=== PATIENT | male | born 1995 | race Caucasian/White ===

== ENCOUNTER 2023-12-27 18:56 | Emergency (ER) | payer BC, SELFPAY ==
[2023-12-27 19:19] VITALS: BP 122/68; PULSE 91; RESP 18; TEMP 36.8; O2SAT 99; BMI 21.7
[2023-12-27 20:00] LABS: Basophils Absolute Auto 0.01 K/uL (0.00-0.30); Basophils Percent Auto 0.1 % (0.0-3.0); Eosinophils Absolute Auto 0.12 K/uL (0.00-0.50); Eosinophils Percent Auto 1.5 % (0.0-7.0); Hemoglobin* 15.7 gm/dL (13.5-17.5); Lymphocytes Percent Auto 36.3 % (20-44); Mean Corpuscular HGB Conc 34 gm/dL (32-36); Mean Corpuscular Hemoglobin 30 pg (26-34); Mean Corpuscular Volume 89 fL (80-100); Neutrophils Absolute Auto 4.23 K/uL (1.7-7.0); Neutrophils Percent Auto 53.1 % (42.0-72.0); Platelet Count* 210 K/uL (140-440); RDW Coefficient of Variation % 13.1 % (11.5-15.5); White Blood Count* 7.98 K/uL (4.50-11.00)
[2023-12-27 20:07] LABS: Slide Review Reflex No
[2023-12-27 20:19] LABS: SARS PCR* Negative SARS-CoV-2 (Negative)
[2023-12-27 20:29] LABS: Chloride* 101 mmol/L (96-114)
[2023-12-27 20:30] LABS: Albumin* 5.1 g/dL (3.3-5.0); Sodium* 138 mmol/L (135-149)
[2023-12-27 20:31] LABS: Potassium* 3.9 mmol/L (3.6-5.1)
[2023-12-27 20:33] LABS: Alanine Aminotransferase* 42 U/L (4-50); Alkaline Phosphatase* 62 U/L (40-150); Anion Gap 8 mEq/L (7-15); Aspartate Amino Transferase* 28 U/L (12-35); Bilirubin Direct* 0.3 mg/dL (0.0-0.5); Bilirubin Total* 0.6 mg/dL (0.1-1.5); Blood Urea Nitrogen* 24 mg/dL (5-24); Carbon Dioxide* 29 mmol/L (20-32); Est. Creatinine Clearance* 104.14; Estimated Glomerular Filt Rate 106 ml/min; Glucose* 78 mg/dL (60-115)
--- NOTE | 2023-12-27 20:33 | ED.GENADULT ---
HPI - General Adult General Chief complaint: Psychiatric Problem/Disorder <Carolynn Garcia MD - Last Filed: 12/29/23 19:19> Stated complaint: Mental health <Carolynn Garcia MD - Last Filed: 12/29/23 19:19> Time Seen by Provider: 12/27/23 19:22 <Carolynn Garcia MD - Last Filed: 12/29/23 19:19> Source: patient and family <Carolynn Garcia MD - Last Filed: 12/29/23 19:19> Mode of arrival: ambulatory <Carolynn Garcia MD - Last Filed: 12/29/23 19:19> Limitations: no limitations <Carolynn Garcia MD - Last Filed: 12/29/23 19:19> History of Present Illness HPI narrative: 28-year-old male presenting to the ER today with concerns of depression. Patient has a history of bipolar disorder, depression and anxiety. He also has ADHD. States that in the last 2 months he has become significantly more sad and depressed. Yesterday he asked his mom to come to the ER for help. Two days ago told his mother that he wanted to hurt himself. Today he says that he has no planned hurt himself but he frequently thinks about suicide and that suicidal thoughts run through his mind daily. After stating that he had no plan, he said he would likely related wrists and sit in the bathtub but then states that he would never actually do that. Last suicidal attempt was approximately 10 years ago per his mother. He has had no psychiatric hospitalizations since. He does have a psychiatrist that he sees regularly. He says that 1 of his medications was changed a couple of weeks ago, he feels that his mood is better but his depression continues to be significant an overwhelming. His mother is concerned that he cannot be left alone because he does have impulsivity and because he has been so down recently she is concerned that he is going to hurt himself. Patient states that he would like to get help to feel better. Patient lives at home with his mother. Mother states that she has to work a week and is requesting hospitalization for her son. Patient states that he would rather not be hospitalized but he understands the need for it and will be on board if that is what is requested of him. Patient denies any drug or alcohol use for the last 8 months. <Carolynn Garcia MD - Last Filed: 12/29/23 19:19> Related Data Home medications: Home Medications ?Medication ?Instructions ?Recorded ?Confirmed cariprazine 3 mg capsule (Vraylar) 3 mg PO DAILY 12/27/23 12/27/23 doxycycline hyclate 100 mg capsule mg PO 12/27/23 tizanidine 4 mg tablet 4 mg PO QPM muscle spasm 12/27/23 12/27/23 trazodone 50 mg tablet 25 - 50 mg PO QPM PRN 12/27/23 12/27/23 <Carolynn Garcia MD - Last Filed: 12/29/23 19:19> Allergies/adverse reactions: Allergies Allergy/AdvReac Type Severity Reaction Status Date / Time amoxicillin [From Augmentin] Allergy Mild Hives Verified 12/27/23 19:12 clavulanic acid Allergy Mild Hives Verified 12/27/23 19:12 [From Augmentin] <Carolynn Garcia MD - Last Filed: 12/29/23 19:19> Review of Systems Status of ROS: Reports: 10 or more systems reviewed and unremarkable except as noted in History and below <Carolynn Garcia MD - Last Filed: 12/29/23 19:19> [facility] Social History: Social History Smoking Status: Current every day smoker Do you use any of these nicotine containing products: E-Cigarettes How often do you have a drink containing alcohol: never AUDIT-C Alcohol total score: 0 Non-prescribed substance use: marijuana (any form) <Carolynn Garcia MD - Last Filed: 12/29/23 19:19> Exam Narrative: Exam Narrative: Well-nourished well-developed patient in no acute distress. Alert and oriented. Answers questions appropriately. Mood is slightly agitated and depressed. Thoughts are goal oriented and rational. No tangential or magical thinking noted. Patient speaks in full sentences without needing to catch his breath. Patient is somewhat disheveled. HEENT: Normocephalic atraumatic. Pupils are equally round reactive to light. Extraocular muscles are intact. Conjunctivae are moist without any icterus noted. Moist mucous membranes. Cardiovascular: Heart is regular rate and rhythm S1 and S2 are present without any murmurs. Lungs: Clear to auscultation bilaterally no wheezes rhonchi or rales are appreciated. Patient takes deep breaths without any discomfort. Abdomen: Soft and nontender nondistended with normal bowel sounds. Extremities: Bilateral lower extremities are without edema. Skin: Well perfused. <Carolynn Garcia MD - Last Filed: 12/29/23 19:19> Const: Vital Signs, click to edit/add: Vital Signs - 24 hr 12/27/23 19:19 12/28/23 02:00 Temperature 98.2 F 98.0 F Pulse Rate [Pulse Oximeter] 91 65 Respiratory Rate 18 16 Blood Pressure [Ri ght Upper Arm] 122/68 118/68 Pulse Oximetry 99 98 Oxygen Delivery Me thod Room Air Room Air <Carolynn Garcia MD - Last Filed: 12/29/23 19:19> Vital Signs, click to edit/add: Vital Signs - 24 hr 12/27/23 19:19 12/28/23 02:00 Temperature 98.2 F 98.0 F Pulse Rate [Pulse Oximeter] 91 65 Respiratory Rate 18 16 Blood Pressure [Ri ght Upper Arm] 122/68 118/68 Pulse Oximetry 99 98 Oxygen Delivery Me thod Room Air Room Air <Jose Morel MD - Last Filed: 12/28/23 07:10> Vital Signs, click to edit/add: Vital Signs - 24 hr 12/27/23 19:19 12/28/23 02:00 Temperature 98.2 F 98.0 F Pulse Rate [Pulse Oximeter] 91 65 Respiratory Rate 18 16 Blood Pressure [Ri ght Upper Arm] 122/68 118/68 Pulse Oximetry 99 98 Oxygen Delivery Me thod Room Air Room Air <Cali Vitale MD - Last Filed: 12/28/23 10:08> Course Course ED Course: Discussed options with patient and his family which include following up with her psychiatrist this coming week to do a med change. Again mother is very concerned about leaving the patient alone for the weekend and given the fact that he was stating that he was going to hurt himself only 2 days ago and requested to come to the ER for help, we have decided to admit the patient to psychiatric facility at this time. <Carolynn Garcia MD - Last Filed: 12/29/23 19:19> Reevaluation(s) Reevaluation #1: Dr. Morel took over care of this patient at midnight-shift change. Signed out by Dr. Meeks. 28-[facility] Desires voluntary inpatient mental health admission. Has a history of bipolar disorder, and sounds like he has been decompensating for a few months. Increasingly sad, depressed. Also paranoid and anxious. Had previously been living on his own, with roommates but now had to move back in with his mother. Having pervasive thoughts of wanting to hurt himself. Has not made any specific suicide attempt. Not actively planning. However he just does not feel safe and can not stop thinking about it. His mother has to work and feels like he is not safe to be at home alone this weekend. He is here in the ER voluntarily and does want inpatient treatment. He is voluntary but holdable. He is medically clear. I reassessed patient at 12:30 p.m.. He is desiring medication to help himself sleep. Normally takes trazodone as needed bedtime. Usual doses 25-50 mg at at bedtime. I ordered trazodone 50 mg p.o.. He also smokes, a few cigarettes per day and also vapes nicotine. This iron something for nicotine withdrawal. Says overall he does not smoke very much. Therefore will start with a low-dose nicotine patch-7 mg/hour He and his mother are comfortable with this plan. Updated them that at this point we do not have any accepting facility and were working on placement. Anticipate that it probably could take until tomorrow (or even longer) to find placement. However I will update them tonight if any bed opens up overnight. They understand that there may be some delay and are still agreeable and voluntary for admission. 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 Slept well. Signed out to my daytime partner at shift change <Jose Morel MD - Last Filed: 12/28/23 07:10> Vital Signs Vital signs: Initial Vital Signs Temperature 98.2 F 12/27/23 19:19 Temperature Source Temporal Artery Scan 12/27/23 19:19 Pulse Rate 91 12/27/23 19:19 Respiratory Rate 18 12/27/23 19:19 Blood Pressure 122/68 12/27/23 19:19 Blood Pressure Mean 86 12/27/23 19:19 Pulse Oximetry 99 12/27/23 19:19 Oxygen Delivery Method Room Air 12/27/23 19:19 Vital Signs Temperature 98.2 F 12/27/23 19:19 Pulse Rate 91 12/27/23 19:19 Respiratory Rate 18 12/27/23 19:19 Blood Pressure 122/68 12/27/23 19:19 Pulse Oximetry 99 12/27/23 19:19 Oxygen Delivery Method Room Air 12/27/23 19:19 Temperature 98.0 F 12/28/23 02:00 Pulse Rate 65 12/28/23 02:00 Respiratory Rate 16 12/28/23 02:00 Blood Pressure 118/68 12/28/23 02:00 Pulse Oximetry 98 12/28/23 02:00 Oxygen Delivery Method Room Air 12/28/23 02:00 <Carolynn Garcia MD - Last Filed: 12/29/23 19:19> Initial Vital Signs Temperature 98.2 F 12/27/23 19:19 Temperature Source Temporal Artery Scan 12/27/23 19:19 Pulse Rate 91 12/27/23 19:19 Respiratory Rate 18 12/27/23 19:19 Blood Pressure 122/68 12/27/23 19:19 Blood Pressure Mean 86 12/27/23 19:19 Pulse Oximetry 99 12/27/23 19:19 Oxygen Delivery Method Room Air 12/27/23 19:19 Vital Signs Temperature 98.2 F 12/27/23 19:19 Pulse Rate 91 12/27/23 19:19 Respiratory Rate 18 12/27/23 19:19 Blood Pressure 122/68 12/27/23 19:19 Pulse Oximetry 99 12/27/23 19:19 Oxygen Delivery Method Room Air 12/27/23 19:19 Temperature 98.0 F 12/28/23 02:00 Pulse Rate 65 12/28/23 02:00 Respiratory Rate 16 12/28/23 02:00 Blood Pressure 118/68 12/28/23 02:00 Pulse Oximetry 98 12/28/23 02:00 Oxygen Delivery Method Room Air 12/28/23 02:00 <Jose Morel MD - Last Filed: 12/28/23 07:10> Initial Vital Signs Temperature 98.2 F 12/27/23 19:19 Temperature Source Temporal Artery Scan 12/27/23 19:19 Pulse Rate 91 12/27/23 19:19 Respiratory Rate 18 12/27/23 19:19 Blood Pressure 122/68 12/27/23 19:19 Blood Pressure Mean 86 12/27/23 19:19 Pulse Oximetry 99 12/27/23 19:19 Oxygen Delivery Method Room Air 12/27/23 19:19 Vital Signs Temperature 98.2 F 12/27/23 19:19 Pulse Rate 91 12/27/23 19:19 Respiratory Rate 18 12/27/23 19:19 Blood Pressure 122/68 12/27/23 19:19 Pulse Oximetry 99 12/27/23 19:19 Oxygen Delivery Method Room Air 12/27/23 19:19 Temperature 98.0 F 12/28/23 02:00 Pulse Rate 65 12/28/23 02:00 Respiratory Rate 16 12/28/23 02:00 Blood Pressure 118/68 12/28/23 02:00 Pulse Oximetry 98 12/28/23 02:00 Oxygen Delivery Method Room Air 12/28/23 02:00 <Cali Vitale MD - Last Filed: 12/28/23 10:08> Medications Administered Medications: Discontinued Medications Generic Name Dose Route Start Last Admin Trade Name Freq PRN Reason Stop Dose Admin Nicotine 1 patch 12/28/23 00:45 12/28/23 01:14 Nicotine 7 Mg Patch TRANSDERMA 1 patch Q24H SHARON Administration Trazodone HCl 50 mg 12/28/23 00:42 12/28/23 01:14 Trazodone Hcl 50 Mg Tablet PO 50 mg HS PRN Administration <Carolynn Garcia MD - Last Filed: 12/29/23 19:19> Discontinued Medications Generic Name Dose Route Start Last Admin Trade Name Freq PRN Reason Stop Dose Admin Nicotine 1 patch 12/28/23 00:45 12/28/23 01:14 Nicotine 7 Mg Patch TRANSDERMA 1 patch Q24H SHARON Administration Trazodone HCl 50 mg 12/28/23 00:42 12/28/23 01:14 Trazodone Hcl 50 Mg Tablet PO 50 mg HS PRN Administration <Jose Morel MD - Last Filed: 12/28/23 07:10> Discontinued Medications Generic Name Dose Route Start Last Admin Trade Name Freq PRN Reason Stop Dose Admin Nicotine 1 patch 12/28/23 00:45 12/28/23 01:14 Nicotine 7 Mg Patch TRANSDERMA 1 patch Q24H SHARON Administration Trazodone HCl 50 mg 12/28/23 00:42 12/28/23 01:14 Trazodone Hcl 50 Mg Tablet PO 50 mg HS PRN Administration <Cali Vitale MD - Last Filed: 12/28/23 10:08> Medical Decision Making MDM Narrative Medical decision making narrative: 28-year-old male with bipolar disorder, depression, ADHD. Depression very poorly controlled at this time is year. Patient having increased sadness he over the last 2 months, worsening over the last week. Patient stating that he was going to hurt himself 2 days ago and requested to come to the ER for help. Patient will be transferred to psychiatric inpatient facility. <Carolynn Garcia MD - Last Filed: 12/29/23 19:19> 28-year-old male with bipolar disorder, depression, ADHD. Depression very poorly controlled at this time is year. Patient having increased sadness he over the last 2 months, worsening over the last week. Patient stating that he was going to hurt himself 2 days ago and requested to come to the ER for help. Patient will be transferred to psychiatric inpatient facility. Addendum 10:07 a.m. 12/28/2023: The patient has been sec to accepted to [facility]. Transfer sheets completed, hold completed. <Cali Vitale MD - Last Filed: 12/28/23 10:08> Lab Data Labs: Lab Results 12/27/23 12/27/23 12/27/23 Range/Units 19:47 19:53 22:23 WBC 7.98 (4.50-11.00) K/uL RBC 5.20 (4.30-5.90) m/uL Hgb 15.7 (13.5-17.5) gm/dL Hct 46.0 (37.0-53.0) % MCV 89 (80-100) fL MCH 30 (26-34) pg MCHC 34 (32-36) gm/dL RDW Coeff of Ezekiel 13.1 (11.5-15.5) % Plt Count 210 (140-440) K/uL Neut % (Auto) 53.1 (42.0-72.0) % Lymph % (Auto) 36.3 (20-44) % [place] % (Auto) 9.0 (0.0-11.0) % Eos % (Auto) 1.5 (0.0-7.0) % Baso % (Auto) 0.1 (0.0-3.0) % Neut # (Auto) 4.23 (1.7-7.0) K/uL Lymph # (Auto) 2.90 (0.90-2.90) K/uL [place] # (Auto) 0.70 (0.00-0.90) K/UL Eos # (Auto) 0.12 (0.00-0.50) K/uL Baso # (Auto) 0.01 (0.00-0.30) K/uL Abs Immat Gran (auto) 0.00 (0.00-0.30) K/uL Imm/Tot Granulo (auto) 0.0 % Sodium 138 (135-149) mmol/L Potassium 3.9 (3.6-5.1) mmol/L Chloride 101 (96-114) mmol/L Carbon Dioxide 29 (20-32) mmol/L Anion Gap 8 (7-15) mEq/L BUN 24 (5-24) mg/dL Creatinine 1.0 (0.5-1.5) mg/dL Estimated Creat Clear 104.14 Estimated GFR 106 ml/min Glucose 78 (60-115) mg/dL Calcium 9.4 (8.4-10.6) mg/dL Total Bilirubin 0.6 (0.1-1.5) mg/dL Direct Bilirubin 0.3 (0.0-0.5) mg/dL AST 28 (12-35) U/L ALT 42 (4-50) U/L Alkaline Phosphatase 62 (40-150) U/L Total Protein 8.0 (6.0-8.3) g/dL Albumin 5.1 H (3.3-5.0) g/dL TSH 0.300 (0.270-4.20) uIU/mL Salicylates < 1.0 L (1.0-10) mg/dL Urine Opiates Screen Negative (Negative) Ur Oxycodone Screen Negative (Negative) Urine Methadone Screen Negative (Negative) Acetaminophen < 10.0 L (10.0-30.0) ug/mL Ur Barbiturates Screen Negative (Negative) U Tricyclic Antidepress Negative (Negative) Ur Phencyclidine Scrn Negative (Negative) Ur Amphetamines Screen Negative (Negative) U Methamphetamines Scrn Negative (Negative) U Benzodiazepines Scrn Negative (Negative) Urine Cocaine Screen Negative (Negative) U Marijuana (THC) Screen POSITIVE A (Negative) Ur Drug Screen Comment See Note Ethyl Alcohol < 0.01 L (0.01-0.03) % SARS-CoV-2 (PCR) Negative SARS-CoV-2 (Negative) <Carolynn Garcia MD - Last Filed: 12/29/23 19:19> Lab Results 12/27/23 12/27/23 12/27/23 Range/Units 19:47 19:53 22:23 WBC 7.98 (4.50-11.00) K/uL RBC 5.20 (4.30-5.90) m/uL Hgb 15.7 (13.5-17.5) gm/dL Hct 46.0 (37.0-53.0) % MCV 89 (80-100) fL MCH 30 (26-34) pg MCHC 34 (32-36) gm/dL RDW Coeff of Ezekiel 13.1 (11.5-15.5) % Plt Count 210 (140-440) K/uL Neut % (Auto) 53.1 (42.0-72.0) % Lymph % (Auto) 36.3 (20-44) % [place] % (Auto) 9.0 (0.0-11.0) % Eos % (Auto) 1.5 (0.0-7.0) % Baso % (Auto) 0.1 (0.0-3.0) % Neut # (Auto) 4.23 (1.7-7.0) K/uL Lymph # (Auto) 2.90 (0.90-2.90) K/uL [place] # (Auto) 0.70 (0.00-0.90) K/UL Eos # (Auto) 0.12 (0.00-0.50) K/uL Baso # (Auto) 0.01 (0.00-0.30) K/uL Abs Immat Gran (auto) 0.00 (0.00-0.30) K/uL Imm/Tot Granulo (auto) 0.0 % Sodium 138 (135-149) mmol/L Potassium 3.9 (3.6-5.1) mmol/L Chloride 101 (96-114) mmol/L Carbon Dioxide 29 (20-32) mmol/L Anion Gap 8 (7-15) mEq/L BUN 24 (5-24) mg/dL Creatinine 1.0 (0.5-1.5) mg/dL Estimated Creat Clear 104.14 Estimated GFR 106 ml/min Glucose 78 (60-115) mg/dL Calcium 9.4 (8.4-10.6) mg/dL Total Bilirubin 0.6 (0.1-1.5) mg/dL Direct Bilirubin 0.3 (0.0-0.5) mg/dL AST 28 (12-35) U/L ALT 42 (4-50) U/L Alkaline Phosphatase 62 (40-150) U/L Total Protein 8.0 (6.0-8.3) g/dL Albumin 5.1 H (3.3-5.0) g/dL TSH 0.300 (0.270-4.20) uIU/mL Salicylates < 1.0 L (1.0-10) mg/dL Urine Opiates Screen Negative (Negative) Ur Oxycodone Screen Negative (Negative) Urine Methadone Screen Negative (Negative) Acetaminophen < 10.0 L (10.0-30.0) ug/mL Ur Barbiturates Screen Negative (Negative) U Tricyclic Antidepress Negative (Negative) Ur Phencyclidine Scrn Negative (Negative) Ur Amphetamines Screen Negative (Negative) U Methamphetamines Scrn Negative (Negative) U Benzodiazepines Scrn Negative (Negative) Urine Cocaine Screen Negative (Negative) U Marijuana (THC) Screen POSITIVE A (Negative) Ur Drug Screen Comment See Note Ethyl Alcohol < 0.01 L (0.01-0.03) % SARS-CoV-2 (PCR) Negative SARS-CoV-2 (Negative) <Jose Morel MD - Last Filed: 12/28/23 07:10> Lab Results 12/27/23 12/27/23 12/27/23 Range/Units 19:47 19:53 22:23 WBC 7.98 (4.50-11.00) K/uL RBC 5.20 (4.30-5.90) m/uL Hgb 15.7 (13.5-17.5) gm/dL Hct 46.0 (37.0-53.0) % MCV 89 (80-100) fL MCH 30 (26-34) pg MCHC 34 (32-36) gm/dL RDW Coeff of Ezekiel 13.1 (11.5-15.5) % Plt Count 210 (140-440) K/uL Neut % (Auto) 53.1 (42.0-72.0) % Lymph % (Auto) 36.3 (20-44) % [place] % (Auto) 9.0 (0.0-11.0) % Eos % (Auto) 1.5 (0.0-7.0) % Baso % (Auto) 0.1 (0.0-3.0) % Neut # (Auto) 4.23 (1.7-7.0) K/uL Lymph # (Auto) 2.90 (0.90-2.90) K/uL [place] # (Auto) 0.70 (0.00-0.90) K/UL Eos # (Auto) 0.12 (0.00-0.50) K/uL Baso # (Auto) 0.01 (0.00-0.30) K/uL Abs Immat Gran (auto) 0.00 (0.00-0.30) K/uL Imm/Tot Granulo (auto) 0.0 % Sodium 138 (135-149) mmol/L Potassium 3.9 (3.6-5.1) mmol/L Chloride 101 (96-114) mmol/L Carbon Dioxide 29 (20-32) mmol/L Anion Gap 8 (7-15) mEq/L BUN 24 (5-24) mg/dL Creatinine 1.0 (0.5-1.5) mg/dL Estimated Creat Clear 104.14 Estimated GFR 106 ml/min Glucose 78 (60-115) mg/dL Calcium 9.4 (8.4-10.6) mg/dL Total Bilirubin 0.6 (0.1-1.5) mg/dL Direct Bilirubin 0.3 (0.0-0.5) mg/dL AST 28 (12-35) U/L ALT 42 (4-50) U/L Alkaline Phosphatase 62 (40-150) U/L Total Protein 8.0 (6.0-8.3) g/dL Albumin 5.1 H (3.3-5.0) g/dL TSH 0.300 (0.270-4.20) uIU/mL Salicylates < 1.0 L (1.0-10) mg/dL Urine Opiates Screen Negative (Negative) Ur Oxycodone Screen Negative (Negative) Urine Methadone Screen Negative (Negative) Acetaminophen < 10.0 L (10.0-30.0) ug/mL Ur Barbiturates Screen Negative (Negative) U Tricyclic Antidepress Negative (Negative) Ur Phencyclidine Scrn Negative (Negative) Ur Amphetamines Screen Negative (Negative) U Methamphetamines Scrn Negative (Negative) U Benzodiazepines Scrn Negative (Negative) Urine Cocaine Screen Negative (Negative) U Marijuana (THC) Screen POSITIVE A (Negative) Ur Drug Screen Comment See Note Ethyl Alcohol < 0.01 L (0.01-0.03) % SARS-CoV-2 (PCR) Negative SARS-CoV-2 (Negative) <Cali Vitale MD - Last Filed: 12/28/23 10:08> Discharge Plan Discharge Clinical Impression: Depression, Suicidal ideation, Bipolar disorder <Carolynn Garcia MD - Last Filed: 12/29/23 19:19> Patient Disposition: Xfer Other <Carolynn Garcia MD - Last Filed: 12/29/23 19:19> Condition: Stable <Carolynn Garcia MD - Last Filed: 12/29/23 19:19> Additional Instructions: Patient has been accepted to [facility], will be transferred on a hold to the facility with EMS <Carolynn Garcia MD - Last Filed: 12/29/23 19:19> Prescriptions: No Action doxycycline hyclate 100 mg capsule PO trazodone 50 mg tablet 25 - 50 mg PO QPM PRN Vraylar 3 mg capsule 3 mg PO DAILY tizanidine 4 mg tablet 4 mg PO QPM <Carolynn Garcia MD - Last Filed: 12/29/23 19:19> Stand Alone Forms: [facility] Info Instructions <Carolynn Garcia MD - Last Filed: 12/29/23 19:19>
[2023-12-27 20:34] LABS: Calcium* 9.4 mg/dL (8.4-10.6)
[2023-12-27 20:42] LABS: Acetaminophen* < 10.0 ug/mL (10.0-30.0); Ethanol* < 0.01 % (0.01-0.03); Salicylate* < 1.0 mg/dL (1.0-10)
[2023-12-27 22:35] LABS: Amphetamine Screen Urine Negative (Negative); Barbiturate Screen Urine Negative (Negative); Benzodiazepines Screen Urine Negative (Negative); Cannabinoid Screen Urine POSITIVE (Negative); Cocaine Screen Urine Negative (Negative); Methadone Screen Urine Negative (Negative); Methamphetamines Screen Urine Negative (Negative); Opiate Screen Urine Negative (Negative); Oxycodone Screen Urine Negative (Negative); Phencyclidine Screen Urine Negative (Negative); Tricyclic Antidepressant Urine Negative (Negative)
--- NOTE | 2023-12-27 23:53 | PC.NURSE ---
Pt's mother staying here for the night. Pt settled for sleep. Has eaten a sandwich and juice.
[2023-12-28] MEDS: TRAZODONE HCL 50 MG TABLET PO (01:14)
[2023-12-28] MEDS: NICOTINE 7 MG PATCH 1 PATCH TRANSDERMA (01:14)
[2023-12-28 02:00] VITALS: BP 118/68; PULSE 65; RESP 16; TEMP 36.7; O2SAT 98
--- NOTE | 2023-12-28 09:23 | ED.NURSE ---
Pharmacist reviewed and checked patient's home meds. MD gave verbal order to continue Vraylar 3mg. This was administered at 0915 this morning.
--- NOTE | 2023-12-28 09:27 | ED.NURSE ---
Patient up to bathroom and requested to order breakfast. Updated about search for placement.
--- NOTE | 2023-12-28 10:28 | ED.NURSE ---
Nurse to nurse report called. Patient transported with [facility] to [facility]. Personal belongings and home medications were given to EMT.
== END 2023-12-28 10:34 | disposition other institution (70) ==
PROVIDERS: Family Medicine; Emergency Provider Emergency Medicine
DX: R45.851 Suicidal ideations (principal); F31.9 Bipolar disorder, unspecified
CPT/HCPCS: 36415; 80048; 80076; 80143; 80179; 80306; 82077; 84443; 85025; 87635; 99285; A9270; S4990

== ENCOUNTER 2023-12-28 10:15 | Outpatient (CLI) | payer BC, SELFPAY | END 2023-12-28 10:16 | disposition home or self-care (01) | LOC: AMB 12-30 20:51 | PROVIDERS: Visit Provider Family Medicine | DX: R45.851 Suicidal ideations (principal) | CPT/HCPCS: A0425; A0428 ==